=== PATIENT | male | born 1990 | race Caucasian/White ===

== ENCOUNTER 2018-05-27 14:59 | Inpatient (IN) ==
--- NOTE | 2018-05-27 15:21 | ED ---
HPI General Chief Complaint: Dental/Oral Stated Complaint: Abd/Tooth Pain Time Seen by Provider: 05/27/18 15:23 Source: patient Mode of arrival: ambulatory Limitations: no limitations History of Present Illness HPI narrative: Patient comes in complaining of 2 issues, patient is on the past 4 Crohn's disorder, he has about of exacerbation today she he rates the pain at approximately an 8 out of 10. It is associated with nausea and diarrhea. The patient also is experiencing severe pain 10 out of 10 of his broken right to on the right maxillary aspect molar tWO MD complaint: abdominal pain Onset (ago): hour(s) (4) Pain Consistency: intermittent Location: diffuse Severity: moderate Severity scale (1-10): 5 Quality: cramping Radiation: none Migration to: no migration Relieving factors: nothing Exacerbating factors: nothing Related Data Allergies Allergy/AdvReac Type Severity Reaction Status Date / Time iodine Allergy Intermediate Anaphylaxis Verified 05/27/18 15:25 Review of Systems Except as stated in HPI: all other systems reviewed are negative PMFSH History History Provided By: Patient Medical History Medical History Crohn disease (Acute) Surgical History Surgical History History of colon resection (Acute) History of colostomy reversal (Acute) Social History Social History Substance History: No History of Abuse Second Hand Smoke Exposure: No Smoking Status: Never smoker How Often Do You Have a Drink Containing Alcohol: Never Recent Travel in [facility] within the Last 8 Weeks: No Recent Out of Country Travel within the Last 8 Weeks: No Exam Narrative Exam Narrative: GENERAL: Well-nourished, well-developed patient in no apparent distress. SKIN: Warm and dry. HEAD: Atraumatic. Normocephalic. EYES: Pupils equal and round. No scleral icterus. No injection or drainage. ENT: No nasal bleeding or discharge. Mucous membranes pink and moist. Right mandibular molar is a large central area that is broken exposing nerve roots, patient given viscous lidocaine NECK: Trachea midline. No JVD. CARDIOVASCULAR: Regular rate and rhythm. no rubs or gallops RESPIRATORY: No accessory muscle use. Clear to auscultation. Breath sounds equal bilaterally. GASTROINTESTINAL: Abdomen soft, epigastric tenderness to palpation , nondistended. No rebound or guarding MUSCULOSKELETAL: Extremities without clubbing, cyanosis, or edema. No obvious deformities. NEUROLOGICAL: Awake and alert. No obvious cranial nerve deficits. Motor grossly within normal limits. Five out of 5 muscle strength in the arms and legs. Normal speech. PSYCHIATRIC: Appropriate mood and affect; insight and judgment normal. Course Initial Documented Vital Signs Temperature 98.5 F 05/27/18 15:06 Pulse Rate 125 H 05/27/18 15:06 Respiratory Rate 22 05/27/18 15:06 Blood Pressure 121/85 05/27/18 15:06 Pulse Oximetry 98 05/27/18 15:06 Last Documented Vital Signs Temperature 98.5 F 05/27/18 15:06 Pulse Rate 125 H 05/27/18 15:06 Respiratory Rate 22 05/27/18 15:06 Blood Pressure 121/85 05/27/18 15:06 Pulse Oximetry 100 05/27/18 16:35 Medical Decision Making MDM Narrative Medical decision making narrative: Patient with known history of Crohn's disease , will be evaluated with IV blood work as well as CT abdomen and pelvis to make sure that there are not any abscess or perforations which are common complications of Crohn's disorder. Lab Data Lab results reviewed: Yes I reviewed the patient's lab results. Result diagrams: 05/27/18 15:46 05/27/18 15:46 Lab Results 05/27/18 05/27/18 Range/Units 15:46 15:46 WBC 4.7 (4.0-11.0) th/mm3 RBC 4.26 L (4.50-5.90) mil/mm3 Hgb 12.8 L (13.0-17.0) gm/dL Hct 39.6 (39.0-51.0) % MCV 93.2 (80.0-100.0) fL MCH 30.2 (27.0-34.0) pg MCHC 32.4 (32.0-36.0) % RDW 14.7 (11.6-17.2) % Plt Count 340 (150-450) th/mm3 MPV 7.9 (7.0-11.0) fL Neut % (Auto) 48.5 (16.0-70.0) % Lymph % (Auto) 33.4 (9.0-44.0) % [place] % (Auto) 12.4 H (0.0-8.0) % Eos % (Auto) 4.4 H (0.0-4.0) % Baso % (Auto) 1.3 (0.0-2.0) % Neut # (Auto) 2.3 (1.8-7.7) th/mm3 Lymph # (Auto) 1.6 (1.0-4.8) th/mm3 [place] # (Auto) 0.6 (0.0-0.9) th/mm3 Eos # (Auto) 0.2 (0.0-0.4) th/mm3 Baso # (Auto) 0.1 (0.0-0.2) th/mm3 WBC Differential . Differential Comment Auto diff final Sodium 142 (136-145) meq/L Potassium 3.5 (3.5-5.1) meq/L Chloride 108 H (98-107) meq/L Carbon Dioxide 27.2 (21.0-32.0) meq/L Anion Gap 7 (5-15) meq/L BUN 10 (7-18) mg/dL Creatinine 1.04 (0.60-1.30) mg/dL Random Glucose 79 (74-106) mg/dL Calcium 9.1 (8.5-10.1) mg/dL Total Bilirubin 0.2 (0.2-1.0) mg/dL AST 37 (15-37) U/L ALT 57 (12-78) U/L Alkaline Phosphatase 85 (45-117) U/L Total Protein 7.7 (6.4-8.2) g/dL Albumin 3.9 (3.4-5.0) g/dL Lipase 2331 H (73-393) U/L Discharge Plan Discharge Disposition Patient Disposition: 30 Still Patient Discharge Condition Condition: Stable Discharge Details Diagnosis: Fracture of tooth, Acute pancreatitis Physicians Team ED Provider: Malik Engel ED Status: With Doctor
[2018-05-27] MEDS ORDERED: Sod Chloride 0.9% Inj 1,000 ML IV.SIG ONE (15:25)
[2018-05-27] MEDS ORDERED: Morphine Inj 4 MG/ML Vial IV.PUSH ONE ×2 (15:25→16:52)
[2018-05-27 16:02] LABS: Baso # (Auto) 0.1 th/mm3 (0.0-0.2); Baso % (Auto) 1.3 % (0.0-2.0); Eos # (Auto) 0.2 th/mm3 (0.0-0.4); Eos % (Auto) 4.4 % (0.0-4.0); Hematocrit 39.6 % (39.0-51.0); Hemoglobin 12.8 gm/dL (13.0-17.0); Lymph # (Auto) 1.6 th/mm3 (1.0-4.8); Lymph % (Auto) 33.4 % (9.0-44.0); Mean Corpuscular HGB Conc 32.4 % (32.0-36.0); Mean Corpuscular Hemoglobin 30.2 pg (27.0-34.0); Mean Corpuscular Volume 93.2 fL (80.0-100.0); Mean Platelet Volume 7.9 fL (7.0-11.0); Mono # (Auto) 0.6 th/mm3 (0.0-0.9); Mono % (Auto) 12.4 % (0.0-8.0); Neut # (Auto) 2.3 th/mm3 (1.8-7.7); Neut % (Auto) 48.5 % (16.0-70.0); Platelet Count 340 th/mm3 (150-450); Red Blood Count 4.26 mil/mm3 (4.50-5.90); Red Cell Distribution Width 14.7 % (11.6-17.2); White Blood Count 4.7 th/mm3 (4.0-11.0)
[2018-05-27 16:22] LABS: Alanine Aminotransferase 57 U/L (12-78); Albumin 3.9 g/dL (3.4-5.0); Anion Gap 7 meq/L (5-15); Aspartate Aminotransferase 37 U/L (15-37); Blood Urea Nitrogen 10 mg/dL (7-18); Calcium 9.1 mg/dL (8.5-10.1); Carbon Dioxide 27.2 meq/L (21.0-32.0); Chloride 108 meq/L (98-107); Glucose,Random 79 mg/dL (74-106); Potassium 3.5 meq/L (3.5-5.1); Sodium 142 meq/L (136-145)
[2018-05-27 16:25] LABS: Alkaline Phosphatase 85 U/L (45-117); Lipase 2331 U/L (73-393); Total Protein 7.7 g/dL (6.4-8.2)
[2018-05-27] MEDS ORDERED: Morphine Sulfate Inj 8 MG/ML Vial IV.PUSH PRN ×2 (18:00→18:07)
[2018-05-27] MEDS ORDERED: Sod Chloride 0.9% Inj 1,000 ML IV.CONT SCH (18:00)
--- NOTE | 2018-05-27 18:02 | CT ---
EXAM DATE: 05/27/2018 5:44 PM EDT AGE/SEX: 28 years / Male INDICATIONS: Abdomen pain. CLINICAL DATA: This is the patient's initial encounter. Patient reports that signs and symptoms have been present for 1 day and indicates a pain score of 6/10. MEDICAL/SURGICAL HISTORY: Crohn's disease. None. RADIATION DOSE: 6.34 CTDI (mGy) COMPARISON: No prior exams available for comparison. TECHNIQUE: Multiple contiguous axial images were obtained through the abdomen. Images were obtained using multiple row detector helical technique. Using automated exposure control and adjustment of the mA and/or kV according to patient size, radiation dose was kept as low as reasonably achievable to o btain optimal diagnostic quality images. DICOM format image data is available electronically for rev iew and comparison. FINDINGS: Lower Lungs: The visualized lower lungs are clear. Liver: The liver has a homogeneous density without space-occupying lesion. There is no dilation of th e biliary tree. There are calcifications along the right lateral liver margin. Spleen: Homogeneous density without enlargement. Pancreas: Unremarkable without mass or calcification. Kidneys: Normal in size and shape. No evidence of mass or hydronephrosis. Adrenal Glands: Unremarkable. Aorta: The aorta and proximal iliac vessels are grossly unremarkable without aneurysmal dilation. Bowel/Mesentery: Limited evaluation secondary to lack of intravenous and oral contrast. There are pos tsurgical changes with anastomotic zeenat in the pelvis. There is no evidence of free air or fluid. The bowel gas pattern is mildly nonspecific with multiple loops of nondilated air-containing small billy wel. The cecum and sigmoid colon have a normal configuration. Abdominal Wall: Intact. Retroperitoneum: No evidence of adenopathy in the retrocrural, para-aortic, or deep pelvic regions. Bladder: Contours are smooth. Reproductive Organs: No abnormal masses or calcifications seen. Inguinal: The inguinal region is unremarkable without evidence of adenopathy. Bony Structures: Unremarkable. CONCLUSION: 1. Nonspecific bowel gas pattern. Evaluation is limited secondary to lack of intravenous and oral co ntrast. There are several loops of nondilated air-containing small bowel. This may represent a mild i leus. There is no definite free air. Postsurgical changes are noted in the pelvis with anastomotic st aples. 2. Benign-appearing calcifications along lateral aspect of the right lobe of the liver. These may re side in the pleura. Electronically signed by: Juvenal Reina MD 05/27/2018 6:00 PM EDT
[2018-05-27] MEDS ORDERED: HYDROmorphone PF Inj 1 MG/ML Ampul IV.PUSH ONE (18:05)
[2018-05-27] MEDS ORDERED: HYDROmorphone PF Inj 2 MG/ML Vial IV.PUSH ONE (18:30)
--- NOTE | 2018-05-27 18:38 | P.HP ---
History of Present Illness Service: [facility] Chief Complaint: Abdominal Pain, Right tooth fracture History of Present Illness: Patient is a 28 year old male with PMHX Crohn's disease who came in to the hospital for severe abdominal pain. Patient states that he does not really have a flare up of Crohn's , noting it is just once every 2 years or so however states he was he was also hospitalized about 3 weeks ago for Crohn's flare up. He also complained that he broke his tooth while eating and stopped his fork in it on the right upper molar portion. But states that he has severe abdominal pain right now and is asking for pain medication. States that he got Dilaudid before and other hospital and that helped him to calm down his severe pain. Patient denies any alcohol use, drug use except for marijuana use. He denies any other medical history. States he had 2 colon resection with colostomy placement and reversal. States abdominal pain is diffuse, rated 10/10, radiating all the way to his back, aggravated by movement, does not know what to relieve it. States he is very anxious because he never had this kind of pain. Positive nausea, no vomiting, positive diarrhea, liquid, no blood. Otherwise, denies SOB/ dyspnea. Denies chest pain, palpitations, headaches, dizziness. Denies fevers, chills. Denies dysuria. Tachycardia 125, 121/85, Lipase 2331. CT scan of the abdomen and pelvis 1. Nonspecific bowel gas pattern. Evaluation is limited secondary to lack of intravenous and oral contrast. There are several loops of nondilated air-containing small bowel. This may represent a mild ileus. There is no definite free air. Postsurgical changes are noted in the pelvis with anastomotic zeenat. 2. Benign-appearing calcifications along lateral aspect of the right lobe of the liver. These may reside in the pleura. Inpatient Certification: I certify that the inpatient services were ordered in accordance with Medicare regulations governing the order. This includes certification that hospital inpatient services are reasonable and necessary and in the case of services not specified as inpatient-only under 42 CFR 419.22(n), that they are appropriately provided as inpatient services in accordance to with the 2-midnight benchmark under 43 CFR 412.3(e) Estimated Total Length of Stay (Days): 2 Plans for Post Hospital Care: Home Review of Systems All other systems reviewed negative except as stated in HPI PMFSH - History History Provided By: Patient - Medical History Medical History: Medical History (Last Updated 05/27/18 @ 16:17 by Nelida Bond) Crohn disease - Surgical History Surgical History: Surgical History (Last Updated 05/27/18 @ 16:19 by Nelida Bond) History of colon resection History of colostomy reversal - Family History Family History: Family History (Last Updated 05/27/18 @ 18:26 by BIANKA Samuels) Mother Crohn disease - Tobacco History Second Hand Smoke Exposure: No Smoking Status: Never smoker - Alcohol History How Often Do You Have a Drink Containing Alcohol: Never - Substance Use History Substance History: No History of Abuse - Substance Use Type Marijuana Type: Marijuana, for appetite stimulation Status: Active (Increase appetite) Frequency: occassional - Travel History Recent Travel in the [place] Within the Last 8 Weeks: No Recent Travel Out of the Country Within the Last 8 Weeks: No - Immunization History Tetanus Immunization: Unsure Hx Influenza Vaccine This Season: Yes Medications and Allergies Active Medications: Active Medications Sodium Chloride (Ns Inj) 1,000 mls @ 125 mls/hr IV.CONT .Q8H DANIKA Lidocaine HCl (Xylocaine 2% Viscous) 15 ml SWISH-SPIT Q4H PRN PRN Reason: DENTAL PAIN Last Admin: 05/27/18 16:37 Dose: 15 ml Morphine Sulfate (Morphine Inj) 2 mg IV.PUSH Q3H PRN PRN Reason: pain 1-5 Morphine Sulfate (Morphine Inj) 5 mg IV.PUSH Q4H PRN PRN Reason: PAIN 6-10;IF UNABLE TO TAKE PO Sodium Chloride (Ns Flush) 2 ml IV.FLUSH PRN PRN PRN Reason: FLUSH AFTER USING IV ACCESS Sodium Chloride (Ns Flush) 2 ml IV.FLUSH BID DANIKA Sodium Chloride (Ns Flush) 2 ml IV.FLUSH PRN PRN PRN Reason: FLUSH AFTER USING IV ACCESS Allergies Allergy/AdvReac Type Severity Reaction Status Date / Time iodine Allergy Intermediate Anaphylaxis Verified 05/27/18 15:25 Exam Vital signs: Vital Signs 05/27/18 15:06 05/27/18 16:35 05/27/18 17:15 Temperature 98.5 F Pulse Rate 125 H Respiratory Rate 22 17 Blood Pressure 121/85 Pulse Oximetry 98 100 05/27/18 17:51 Temperature Pulse Rate Respiratory Rate 16 Blood Pressure Pulse Oximetry Intake & Output 05/26/18 05/27/18 05/27/18 18:59 06:59 18:59 Weight 68.039 kg Narrative: GENERAL: This is a thin appearing, well-developed patient, appears very anxious. SKIN: Warm and dry HEENT: Normocephalic. Pupils equal round and reactive. Nose without bleeding. Airway patent. Right upper molar tooth fx, no erythema or edema.Tooth has intact attachment. NECK: Trachea midline. No JVD. Supple. CARDIOVASCULAR: Regular rate and rhythm without murmurs, gallops, or rubs. RESPIRATORY: Clear to auscultation. Breath sounds equal bilaterally. No wheezes , rales, or rhonchi. GASTROINTESTINAL: Abdomen soft, nondistended. Bowel Sounds normoactive x4. Tenderness to palpate left quadrant, mid epigastric MUSCULOSKELETAL: Extremities without clubbing, cyanosis, or edema. NEUROLOGICAL: Awake and alert. Oriented to time, place, person. No focal neuro deficit. Moves all extremities. Normal speech. Results - Labs CBC & Chem 7: 05/27/18 15:46 05/27/18 15:46 Labs: Laboratory Results - last 24 hr 05/27/18 05/27/18 15:46 15:46 WBC 4.7 RBC 4.26 L Hgb 12.8 L Hct 39.6 MCV 93.2 MCH 30.2 MCHC 32.4 RDW 14.7 Plt Count 340 MPV 7.9 Neut % (Auto) 48.5 Lymph % (Auto) 33.4 [place] % (Auto) 12.4 H Eos % (Auto) 4.4 H Baso % (Auto) 1.3 Neut # (Auto) 2.3 Lymph # (Auto) 1.6 [place] # (Auto) 0.6 Eos # (Auto) 0.2 Baso # (Auto) 0.1 WBC Differential . Differential Comment Auto diff final Sodium 142 Potassium 3.5 Chloride 108 H Carbon Dioxide 27.2 Anion Gap 7 BUN 10 Creatinine 1.04 Random Glucose 79 Calcium 9.1 Total Bilirubin 0.2 AST 37 ALT 57 Alkaline Phosphatase 85 Total Protein 7.7 Albumin 3.9 Lipase 2331 H - Imaging Impressions Abdomen/Pelvis CT 05/27/18 15:25 CONCLUSION: 1. Nonspecific bowel gas pattern. Evaluation is limited secondary to lack of intravenous and oral contrast. There are several loops of nondilated air- containing small bowel. This may represent a mild ileus. There is no definite free air. Postsurgical changes are noted in the pelvis with anastomotic zeenat. 2. Benign-appearing calcifications along lateral aspect of the right lobe of the liver. These may reside in the pleura. Caprini VTE Risk Assessment Caprini VTE Risk Assessment: No/Low Risk (score <= 1) Caprini Risk Assessment Model: Point Value = 1 Point Value = 2 Point Value = 3 Point Value = 5 Age 41-60 Minor surgery BMI > 25 kg/m2 Swollen legs Varicose veins or History of unexplained or recurrent spontaneous Oral contraceptives or hormone replacement Sepsis (< 1 month) Serious lung disease, including pneumonia (< 1 month) Abnormal pulmonary function Acute myocardial infarction Congestive heart failure (< 1 month) History of inflammatory bowel disease Medical patient at bed rest Age 61-74 Arthroscopic surgery Major open surgery (> 45 min) Laparoscopic surgery (> 45 min) Malignancy Confined to bed (> 72 hours) Immobilizing plaster cast Central venous access Age >= 75 History of VTE Family history of VTE Factor V Leiden Prothrombin [id number] Lupus anticoagulant Anticardiolipin antibodies Elevated serum homocysteine Heparin-induced thrombocytopenia Other congenital or acquired thrombophilia Stroke (< 1 month) Elective arthroplasty Hip, pelvis, or leg fracture Acute spinal cord injury (< 1 month) Prophylaxis Regimen: Total Risk Factor Score Risk Level Prophylaxis Regimen 0-1 Low Early ambulation 2 Moderate Order ONE of the following: *Sequential Compression Device (SCD) *Heparin 5000 units SQ BID 3-4 Higher Order ONE of the following medications: *Heparin 5000 units SQ TID *Enoxaparin/Lovenox 40 mg SQ daily (WT < 150 kg, CrCl > 30 mL/min) *Enoxaparin/Lovenox 30 mg SQ daily (WT < 150 kg, CrCl > 10-29 mL/min) *Enoxaparin/Lovenox 30 mg SQ BID (WT < 150 kg, CrCl > 30 mL/min) AND/OR *Sequential Compression Device (SCD) 5 or more Highest Order ONE of the following medications: *Heparin 5000 units SQ TID (Preferred with Epidurals) *Enoxaparin/Lovenox 40 mg SQ daily (WT < 150 kg, CrCl > 30 mL/min) *Enoxaparin/Lovenox 30 mg SQ daily (WT < 150 kg, CrCl > 10-29 mL/min) *Enoxaparin/Lovenox 30 mg SQ BID (WT < 150 kg, CrCl > 30 mL/min) AND *Sequential Compression Device (SCD) Assessment and Plan - Plan Patient is a 28 year old male with PMHX Crohn's disease who came in to the hospital for severe abdominal pain. Acute Pancreatitis Underlying Crohn's disease -Lipase 2331 -CT of the abdomen and pelvis is no contrast due to allergy. 1. Nonspecific bowel gas pattern. Evaluation is limited secondary to lack of intravenous and oral contrast. There are several loops of nondilated air- containing small bowel. This may represent a mild ileus. There is no definite free air. Postsurgical changes are noted in the pelvis with anastomotic zeenat. 2. Benign-appearing calcifications along lateral aspect of the right lobe of the liver. These may reside in the pleura. -IV fluids, NPO for now -Follow labs -X1 dose dialudid for now, x1 dose ativan -Morphine IV for pain Fracture tooth -Intact implantation -Follow up outpatient DVT Prop SCDs
[2018-05-27] MEDS ORDERED: Morphine Inj 4 MG/ML Vial IV.PUSH PRN ×2 (21:31→21:32)
[2018-05-28] MEDS: HYDROmorphone PF Inj 2 MG/ML Vial IV.PUSH PRN ×3 (00:50→21:04)
[2018-05-28 07:05] LABS: Alanine Aminotransferase 39 U/L (12-78); Albumin 2.8 g/dL (3.4-5.0); Alkaline Phosphatase 63 U/L (45-117); Anion Gap 4 meq/L (5-15); Aspartate Aminotransferase 21 U/L (15-37); Blood Urea Nitrogen 7 mg/dL (7-18); Calcium 8.3 mg/dL (8.5-10.1); Carbon Dioxide 27.8 meq/L (21.0-32.0); Chloride 109 meq/L (98-107); Glomerular Filtration Rate Greater Than 89 mL/min (>89); Glucose,Random 80 mg/dL (74-106); Lipase 202 U/L (73-393); Potassium 3.9 meq/L (3.5-5.1); Sodium 141 meq/L (136-145); Total Protein 5.8 g/dL (6.4-8.2)
[2018-05-28 07:22] LABS: Baso % (Auto) 0.5 % (0.0-2.0); Eos # (Auto) 0.3 th/mm3 (0.0-0.4); Hemoglobin 12.1 gm/dL (13.0-17.0); Lymph # (Auto) 1.5 th/mm3 (1.0-4.8); Lymph % (Auto) 36.5 % (9.0-44.0); Mean Corpuscular HGB Conc 32.8 % (32.0-36.0); Mean Corpuscular Hemoglobin 30.3 pg (27.0-34.0); Mean Corpuscular Volume 92.3 fL (80.0-100.0); Mono # (Auto) 0.5 th/mm3 (0.0-0.9); Neut # (Auto) 1.9 th/mm3 (1.8-7.7); Platelet Count 286 th/mm3 (150-450); Red Cell Distribution Width 14.2 % (11.6-17.2); White Blood Count 4.1 th/mm3 (4.0-11.0)
--- NOTE | 2018-05-28 13:20 | P.PNIM ---
Subjective Interval history: Patient reports persistent abdominal pain and watery diarrhea. On arrival to the room, he seemed comfortable using his laptop but on my evaluation he reports significant abdominal pain. Physical Exam Vital signs: Vital Signs 05/27/18 15:06 05/27/18 16:35 05/27/18 17:15 Temperature 98.5 F Pulse Rate 125 H Respiratory Rate 22 17 Blood Pressure 121/85 Pulse Oximetry 98 100 05/27/18 17:51 05/27/18 19:18 05/27/18 20:00 Temperature 97.4 F L Pulse Rate 68 63 Respiratory Rate 16 15 18 Blood Pressure 112/68 117/65 Pulse Oximetry 97 99 05/28/18 00:00 05/28/18 04:00 05/28/18 08:00 Temperature 97.7 F 97.6 F 97.4 F L Pulse Rate 64 62 Respiratory Rate 18 18 19 Blood Pressure 115/74 107/68 109/61 Pulse Oximetry 100 100 95 Intake & Output 05/27/18 05/28/18 05/28/18 18:59 06:59 18:59 Intake Total 1000 / 1000 0 / 0 Output Total 200 / 200 Balance 1000 / 1000 -200 / -200 Weight 68.039 kg 63 kg Intake: IV 1000 / 1000 LR 1000 mL Inj 1,000 ML @ 125 1000 / 1000 mls/hr IV.CONT .Q8H [facility] Rx#: [id number] Oral 0 / 0 Output: Urine 200 / 200 Other: Date of Last Bowel Movement 05/27/18 05/28/18 Weight On Admission 63 kg Narrative: GENERAL: This is a well-nourished, well-developed patient, in no apparent distress. CARDIOVASCULAR: Normal rate and regular rhythm without murmurs, gallops, or rubs. RESPIRATORY: Good respiratory efforts. Breath sounds equal and clear to auscultation bilaterally. GASTROINTESTINAL: Abdomen soft, non-distended. Patient reports tenderness to palpation. No rebound tenderness. MUSCULOSKELETAL: Extremities without cyanosis, or edema. NEURO: Alert & Oriented x4 to person, place, time, situation. Moves all ext x4 PSYCH: Appropriate mood and affect. Results - Labs CBC & Chem 7: 05/28/18 06:22 05/28/18 06:22 Laboratory Results - last 24 hr 05/27/18 05/27/18 05/28/18 15:46 15:46 06:22 WBC 4.7 4.1 RBC 4.26 L 4.00 L Hgb 12.8 L 12.1 L Hct 39.6 37.0 L MCV 93.2 92.3 MCH 30.2 30.3 MCHC 32.4 32.8 RDW 14.7 14.2 Plt Count 340 286 MPV 7.9 8.0 Neut % (Auto) 48.5 46.0 Lymph % (Auto) 33.4 36.5 [place] % (Auto) 12.4 H 11.0 H Eos % (Auto) 4.4 H 6.0 H Baso % (Auto) 1.3 0.5 Neut # (Auto) 2.3 1.9 Lymph # (Auto) 1.6 1.5 [place] # (Auto) 0.6 0.5 Eos # (Auto) 0.2 0.3 Baso # (Auto) 0.1 0.0 WBC Differential . . Differential Comment Auto diff final Auto diff final Sodium 142 Potassium 3.5 Chloride 108 H Carbon Dioxide 27.2 Anion Gap 7 BUN 10 Creatinine 1.04 Estimated GFR Random Glucose 79 Calcium 9.1 Total Bilirubin 0.2 Direct Bilirubin Indirect Bilirubin AST 37 ALT 57 Alkaline Phosphatase 85 Total Protein 7.7 Albumin 3.9 Lipase 2331 H 05/28/18 06:22 WBC RBC Hgb Hct MCV MCH MCHC RDW Plt Count MPV Neut % (Auto) Lymph % (Auto) [place] % (Auto) Eos % (Auto) Baso % (Auto) Neut # (Auto) Lymph # (Auto) [place] # (Auto) Eos # (Auto) Baso # (Auto) WBC Differential Differential Comment Sodium 141 Potassium 3.9 Chloride 109 H Carbon Dioxide 27.8 Anion Gap 4 L BUN 7 Creatinine 0.79 Estimated GFR Greater than 89 Random Glucose 80 Calcium 8.3 L D Total Bilirubin 0.3 Direct Bilirubin 0.1 Indirect Bilirubin 0.2 AST 21 ALT 39 Alkaline Phosphatase 63 Total Protein 5.8 L D Albumin 2.8 L D Lipase 202 - Imaging Impressions Abdomen/Pelvis CT 05/27/18 15:25 CONCLUSION: 1. Nonspecific bowel gas pattern. Evaluation is limited secondary to lack of intravenous and oral contrast. There are several loops of nondilated air- containing small bowel. This may represent a mild ileus. There is no definite free air. Postsurgical changes are noted in the pelvis with anastomotic zeenat. 2. Benign-appearing calcifications along lateral aspect of the right lobe of the liver. These may reside in the pleura. Assessment and Plan - Plan Patient is a 28 year old male with PMHX Crohn's disease who came in to the hospital for severe abdominal pain. Acute Pancreatitis Underlying Crohn's disease -Lipase 2331 on presentation, trended down and normalized. -CT of the abdomen and pelvis is no contrast due to allergy. 1. Nonspecific bowel gas pattern. Evaluation is limited secondary to lack of intravenous and oral contrast. There are several loops of nondilated air- containing small bowel. This may represent a mild ileus. There is no definite free air. Postsurgical changes are noted in the pelvis with anastomotic zeenat. 2. Benign-appearing calcifications along lateral aspect of the right lobe of the liver. These may reside in the pleura. -Advanced to low-fat diet -No objective evidence that he requires IV pain medication. Start Percocet. Discontinue Dilaudid -Consult GI given history of Crohn's and persistent abdominal pain. Fracture tooth -Intact implantation -Follow up outpatient DVT Prop SCDs. Patient is ambulatory.
[2018-05-28] MEDS: oxyCODONE/Acetaminophen 10/325 Tablet PO PRN ×2 (13:36→19:27)
--- NOTE | 2018-05-28 13:40 | P.CONGI ---
History of Present Illness Consult date: 05/28/18 Consult reason: Abdominal pain Chief complaint: Abd/Tooth Pain History of Present Illness: This is a 28 yo M with GI history significant for Crohns disease, previously had 2 bowel resections, at one point had a colostomy which has since been reversed. Pt presented to the ER yesterday with complaints of RUQ abdominal pain that began suddenly yesterday afternoon, denies eating or doing anything prior to the pain starting. Pain is constant, described as sharp and stabbing. Also complaining of nausea and vomiting that began at the same time, two episodes of emesis, denies hematemesis and coffee ground emesis. Pt found to have elevated lipase. Denies history of pancreatitis. Of note, states he thinks his mother of pancreatic cancer and states she did not drink alcohol. Pt complaining of diarrhea, states diarrhea is chronic but has been increasing in frequency. Denies hematochezia. Pt on Pentasa and folic acid for Crohns, states when he has flares he goes to an urgent care for Prednisone, currently with no GI doctor. Last colonoscopy 1 years ago and states active Crohns flare at that time. Last EGD 2 years ago and states inflammation consistent with acid reflux. Denies ETOH, smoking, and illicit drug use although according to admission note pt did admit to marijuana use. <Neeta Guerra - Last Filed: 05/28/18 13:27> Review of Systems Gastrointestinal: Reports abdominal pain, Reports loose stools, Reports nausea, Reports vomiting, Denies black, tarry stools, Denies bright, red blood in stools , Denies coffee ground vomit, Denies vomiting blood <Neeta Guerra - Last Filed: 05/28/18 13:27> [facility] - History History Provided By: Patient, Significant Other - Medical History Medical History: Medical History (Last Updated 05/27/18 @ 16:17 by Nelida Bond) Crohn disease - Surgical History Surgical History: Surgical History (Last Updated 05/27/18 @ 16:19 by Nelida Bond) History of colon resection History of colostomy reversal - Family History Family History: Family History (Last Updated 05/27/18 @ 18:26 by BIANKA Samuels) Mother Crohn disease - Tobacco History Second Hand Smoke Exposure: No Tobacco Use In Past 30 Days: No Smoking Status: Former smoker - Alcohol History How Often Do You Have a Drink Containing Alcohol: Never - Substance Use History Substance History: Active Abuse - Substance Use Type Marijuana Type: Marijuana, for appetite stimulation Status: Active Route Used: Inhalation Frequency: occassional Last Used: 05/27/18 - Travel History Recent Travel in the [place] Within the Last 8 Weeks: No Recent Travel Out of the Country Within the Last 8 Weeks: No - Immunization History Tetanus Immunization: <5 Years Hx Influenza Vaccine This Season: No <Neeta Guerra - Last Filed: 05/28/18 13:27> - Medical History Medical History: Medical History (Last Updated 05/27/18 @ 16:17 by Nelida Bond) Crohn disease - Surgical History Surgical History: Surgical History (Last Updated 05/27/18 @ 16:19 by Nelida Bond) History of colon resection History of colostomy reversal - Family History Family History: Family History (Last Updated 05/27/18 @ 18:26 by BIANKA Samuels) Mother Crohn disease <Cornell Hays - Last Filed: 05/28/18 15:54> Medications and Allergies Active Medications: Active Medications Diphenhydramine HCl (Benadryl Inj) 25 mg IV.PUSH Q4H PRN PRN Reason: ITCHING Last Admin: 05/28/18 02:39 Dose: 25 mg Hydromorphone HCl (Dilaudid Pf Inj) 0.5 mg IV.PUSH Q4H PRN PRN Reason: BREAKTHROUGH PAIN Lactated Ringer's (Lr 1000 Ml Inj) 1,000 mls @ 125 mls/hr IV.CONT .Q8H [facility] Last Admin: 05/28/18 12:38 Dose: Not Given Lidocaine HCl (Xylocaine 2% Viscous) 15 ml SWISH-SPIT Q4H PRN PRN Reason: DENTAL PAIN Last Admin: 05/27/18 16:37 Dose: 15 ml Ondansetron HCl (Zofran Odt) 4 mg PO Q6H PRN PRN Reason: Nausea, vomiting Oxycodone/Acetaminophen (Percocet 10/325 Mg) 1 tab PO Q6H PRN PRN Reason: PAIN SCALE 6 TO 10 Sodium Chloride (Ns Flush) 2 ml IV.FLUSH BID [facility] Last Admin: 05/28/18 12:37 Dose: Not Given Sodium Chloride (Ns Flush) 2 ml IV.FLUSH PRN PRN PRN Reason: FLUSH AFTER USING IV ACCESS <Neeta Guerra - Last Filed: 05/28/18 13:27> Active Medications: Active Medications Diphenhydramine HCl (Benadryl Inj) 25 mg IV.PUSH Q4H PRN PRN Reason: ITCHING Last Admin: 05/28/18 02:39 Dose: 25 mg Hydromorphone HCl (Dilaudid Pf Inj) 0.5 mg IV.PUSH Q4H PRN PRN Reason: BREAKTHROUGH PAIN Lactated Ringer's (Lr 1000 Ml Inj) 1,000 mls @ 125 mls/hr IV.CONT .Q8H [facility] Last Admin: 05/28/18 12:38 Dose: Not Given Lidocaine HCl (Xylocaine 2% Viscous) 15 ml SWISH-SPIT Q4H PRN PRN Reason: DENTAL PAIN Last Admin: 05/27/18 16:37 Dose: 15 ml Ondansetron HCl (Zofran Odt) 4 mg PO Q6H PRN PRN Reason: Nausea, vomiting Oxycodone/Acetaminophen (Percocet 10/325 Mg) 1 tab PO Q6H PRN PRN Reason: PAIN SCALE 6 TO 10 Last Admin: 05/28/18 13:36 Dose: 1 tab Sodium Chloride (Ns Flush) 2 ml IV.FLUSH BID [facility] Last Admin: 05/28/18 12:37 Dose: Not Given Sodium Chloride (Ns Flush) 2 ml IV.FLUSH PRN PRN PRN Reason: FLUSH AFTER USING IV ACCESS <Cornell Hays - Last Filed: 05/28/18 15:54> Allergies Allergy/AdvReac Type Severity Reaction Status Date / Time iodine Allergy Intermediate Anaphylaxis Verified 05/27/18 15:25 Home Medications Medication Instructions Recorded Confirmed Type No Known Home Medications 05/27/18 05/27/18 History Exam Vital signs: Vital Signs 05/27/18 15:06 05/27/18 16:35 05/27/18 17:15 Temperature 98.5 F Pulse Rate 125 H Respiratory Rate 22 17 Blood Pressure 121/85 Pulse Oximetry 98 100 05/27/18 17:51 05/27/18 19:18 05/27/18 20:00 Temperature 97.4 F L Pulse Rate 68 63 Respiratory Rate 16 15 18 Blood Pressure 112/68 117/65 Pulse Oximetry 97 99 05/28/18 00:00 05/28/18 04:00 05/28/18 08:00 Temperature 97.7 F 97.6 F 97.4 F L Pulse Rate 64 62 Respiratory Rate 18 18 19 Blood Pressure 115/74 107/68 109/61 Pulse Oximetry 100 100 95 Intake & Output 05/27/18 05/28/18 05/28/18 18:59 06:59 18:59 Intake Total 1000 / 1000 0 / 0 Output Total 200 / 200 Balance 1000 / 1000 -200 / -200 Weight 68.039 kg 63 kg Intake: IV 1000 / 1000 LR 1000 mL Inj 1,000 ML @ 125 1000 / 1000 mls/hr IV.CONT .Q8H [facility] Rx#: [id number] Oral 0 / 0 Output: Urine 200 / 200 Other: Date of Last Bowel Movement 05/27/18 05/28/18 Weight On Admission 63 kg - Constitutional no acute distress - Routine HEENT Exam Head: Present: normocephalic, atraumatic - Routine Respiratory Exam Absent: accessory muscle use - Routine Cardiovascular Exam Present: RRR - Routine Abdominal Exam Present: soft, normoactive bowel sounds, tenderness (diffusely tender to palpation). Absent: distended - Routine Skin Exam Present: dry, warm - Routine Neurological Exam Present: alert, oriented X3 <Neeta Guerra - Last Filed: 05/28/18 13:27> Vital signs: Vital Signs 05/27/18 16:35 05/27/18 17:15 05/27/18 17:51 Temperature Pulse Rate Respiratory Rate 17 16 Blood Pressure Pulse Oximetry 100 05/27/18 19:18 05/27/18 20:00 05/28/18 00:00 Temperature 97.4 F L 97.7 F Pulse Rate 68 63 Respiratory Rate 15 18 18 Blood Pressure 112/68 117/65 115/74 Pulse Oximetry 97 99 100 05/28/18 04:00 05/28/18 08:00 05/28/18 12:00 Temperature 97.6 F 97.4 F L 97.2 F L Pulse Rate 64 62 97 H Respiratory Rate 18 19 21 Blood Pressure 107/68 109/61 160/73 H Pulse Oximetry 100 95 95 Intake & Output 05/27/18 05/28/18 05/28/18 18:59 06:59 18:59 Intake Total 1000 / 1000 0 / 0 Output Total 200 / 200 Balance 1000 / 1000 -200 / -200 Weight 68.039 kg 63 kg Intake: IV 1000 / 1000 LR 1000 mL Inj 1,000 ML @ 125 1000 / 1000 mls/hr IV.CONT .Q8H [facility] Rx#: [id number] Oral 0 / 0 Output: Urine 200 / 200 Other: Date of Last Bowel Movement 05/27/18 05/28/18 Weight On Admission 63 kg <Cornell Hays - Last Filed: 05/28/18 15:54> Results - Labs CBC & Chem 7: 05/28/18 06:22 05/28/18 06:22 Labs: Laboratory Results - last 24 hr 05/27/18 05/27/18 05/28/18 15:46 15:46 06:22 WBC 4.7 4.1 RBC 4.26 L 4.00 L Hgb 12.8 L 12.1 L Hct 39.6 37.0 L MCV 93.2 92.3 MCH 30.2 30.3 MCHC 32.4 32.8 RDW 14.7 14.2 Plt Count 340 286 MPV 7.9 8.0 Neut % (Auto) 48.5 46.0 Lymph % (Auto) 33.4 36.5 [place] % (Auto) 12.4 H 11.0 H Eos % (Auto) 4.4 H 6.0 H Baso % (Auto) 1.3 0.5 Neut # (Auto) 2.3 1.9 Lymph # (Auto) 1.6 1.5 Coryell # (Auto) 0.6 0.5 Eos # (Auto) 0.2 0.3 Baso # (Auto) 0.1 0.0 WBC Differential . . Differential Comment Auto diff final Auto diff final Sodium 142 Potassium 3.5 Chloride 108 H Carbon Dioxide 27.2 Anion Gap 7 BUN 10 Creatinine 1.04 Estimated GFR Random Glucose 79 Calcium 9.1 Total Bilirubin 0.2 Direct Bilirubin Indirect Bilirubin AST 37 ALT 57 Alkaline Phosphatase 85 Total Protein 7.7 Albumin 3.9 Lipase 2331 H 05/28/18 06:22 WBC RBC Hgb Hct MCV MCH MCHC RDW Plt Count MPV Neut % (Auto) Lymph % (Auto) [place] % (Auto) Eos % (Auto) Baso % (Auto) Neut # (Auto) Lymph # (Auto) [place] # (Auto) Eos # (Auto) Baso # (Auto) WBC Differential Differential Comment Sodium 141 Potassium 3.9 Chloride 109 H Carbon Dioxide 27.8 Anion Gap 4 L BUN 7 Creatinine 0.79 Estimated GFR Greater than 89 Random Glucose 80 Calcium 8.3 L D Total Bilirubin 0.3 Direct Bilirubin 0.1 Indirect Bilirubin 0.2 AST 21 ALT 39 Alkaline Phosphatase 63 Total Protein 5.8 L D Albumin 2.8 L D Lipase 202 - Imaging Impressions Abdomen/Pelvis CT 05/27/18 15:25 CONCLUSION: 1. Nonspecific bowel gas pattern. Evaluation is limited secondary to lack of intravenous and oral contrast. There are several loops of nondilated air- containing small bowel. This may represent a mild ileus. There is no definite free air. Postsurgical changes are noted in the pelvis with anastomotic zeenat. 2. Benign-appearing calcifications along lateral aspect of the right lobe of the liver. These may reside in the pleura. <Neeta Guerra - Last Filed: 05/28/18 13:27> - Labs CBC & Chem 7: 05/28/18 06:22 05/28/18 06:22 Labs: Laboratory Results - last 24 hr 05/27/18 05/27/18 05/28/18 15:46 15:46 06:22 WBC 4.7 4.1 RBC 4.26 L 4.00 L Hgb 12.8 L 12.1 L Hct 39.6 37.0 L MCV 93.2 92.3 MCH 30.2 30.3 MCHC 32.4 32.8 RDW 14.7 14.2 Plt Count 340 286 MPV 7.9 8.0 Neut % (Auto) 48.5 46.0 Lymph % (Auto) 33.4 36.5 Coryell % (Auto) 12.4 H 11.0 H Eos % (Auto) 4.4 H 6.0 H Baso % (Auto) 1.3 0.5 Neut # (Auto) 2.3 1.9 Lymph # (Auto) 1.6 1.5 Coryell # (Auto) 0.6 0.5 Eos # (Auto) 0.2 0.3 Baso # (Auto) 0.1 0.0 WBC Differential . . Differential Comment Auto diff final Auto diff final Sodium 142 Potassium 3.5 Chloride 108 H Carbon Dioxide 27.2 Anion Gap 7 BUN 10 Creatinine 1.04 Estimated GFR Random Glucose 79 Calcium 9.1 Total Bilirubin 0.2 Direct Bilirubin Indirect Bilirubin AST 37 ALT 57 Alkaline Phosphatase 85 Total Protein 7.7 Albumin 3.9 Lipase 2331 H 05/28/18 06:22 WBC RBC Hgb Hct MCV MCH MCHC RDW Plt Count MPV Neut % (Auto) Lymph % (Auto) Coryell % (Auto) Eos % (Auto) Baso % (Auto) Neut # (Auto) Lymph # (Auto) Coryell # (Auto) Eos # (Auto) Baso # (Auto) WBC Differential Differential Comment Sodium 141 Potassium 3.9 Chloride 109 H Carbon Dioxide 27.8 Anion Gap 4 L BUN 7 Creatinine 0.79 Estimated GFR Greater than 89 Random Glucose 80 Calcium 8.3 L D Total Bilirubin 0.3 Direct Bilirubin 0.1 Indirect Bilirubin 0.2 AST 21 ALT 39 Alkaline Phosphatase 63 Total Protein 5.8 L D Albumin 2.8 L D Lipase 202 - Imaging Impressions Abdomen/Pelvis CT 05/27/18 15:25 CONCLUSION: 1. Nonspecific bowel gas pattern. Evaluation is limited secondary to lack of intravenous and oral contrast. There are several loops of nondilated air- containing small bowel. This may represent a mild ileus. There is no definite free air. Postsurgical changes are noted in the pelvis with anastomotic zeenat. 2. Benign-appearing calcifications along lateral aspect of the right lobe of the liver. These may reside in the pleura. <Cornell Hays - Last Filed: 05/28/18 15:54> Assessment and Plan - Plan Assessment: - Pancreatitis of unclear etiology- lipase 2331 on admission Complaining of RUQ abdominal pain that came on suddenly yesterday afternoon, denies eating or doing anything prior to start of pain. Associated nausea and vomiting x 2, denies hematemesis and coffee ground emesis. Denies history of pancreatitis. Denies ETOH, new OTC or prescription medications. Of note, thinks his mother of pancreatic cancer and states she did not drink alcohol - Diarrhea- States chronic diarrhea secondary to Crohns but has been increasing in frequency over the past couple days, denies hematochezia History of Crohns disease S/P bowel resection x 2, at one point had colostomy which has since been reversed On Pentasa, Folic acid, calcium and iron supplements. States when he has a flare he goes to an urgent care for Prednisone, last flare a few months ago. Currently does not follow up with GI since moving from [place]. Last colonoscopy 1 year ago and states active Crohns flare at this time. Plan: Advance to liquid diet MRCP CA 19-9 SRINIVASA and IgG 4 Lipid panel Stool studies If negative, start on steroids Likely will not tolerate prep for colonoscopy at this time, will follow, inpatient vs outpatient Further recommendations to follow based on clinical course and results of above Pt has been seen and examined by myself and Dr. Hays and this note is written on his behalf <Neeta Guerra - Last Filed: 05/28/18 13:27> - Attending Attestation Patient seen and examined Agree with above Continue with current supportive care Monitor labs We will probably proceed with an EGD and a colonoscopy in a couple of days prior to discharge <Cornell Hays - Last Filed: 05/28/18 15:54>
[2018-05-28 16:27] LABS: Amphetamine Screen,Urine Neg (Neg); Barbiturate Screen,Urine Pos (Neg); Cannabinoid Screen,Urine Pos (Neg); Cocaine Screen,Urine Neg (Neg)
[2018-05-28 16:45] LABS: Opiate Screen,Urine Neg (Neg)
[2018-05-28 17:56] LABS: Chol/HDL Ratio 2.04 Ratio; HDL Cholesterol 100.9 mg/dL (40.0-60.0)
[2018-05-29] MEDS: HYDROmorphone PF Inj 2 MG/ML Vial IV.PUSH PRN ×6 (01:07→21:12)
[2018-05-29] MEDS: oxyCODONE/Acetaminophen 10/325 Tablet PO PRN ×4 (03:04→22:16)
[2018-05-29 04:36] LABS: Baso % (Auto) 1.2 % (0.0-2.0); Eos # (Auto) 0.2 th/mm3 (0.0-0.4); Eos % (Auto) 4.8 % (0.0-4.0); Hematocrit 36.3 % (39.0-51.0); Hemoglobin 11.9 gm/dL (13.0-17.0); Lymph # (Auto) 1.5 th/mm3 (1.0-4.8); Mean Corpuscular HGB Conc 32.8 % (32.0-36.0); Mean Corpuscular Hemoglobin 30.3 pg (27.0-34.0); Mean Corpuscular Volume 92.4 fL (80.0-100.0); Mean Platelet Volume 8.4 fL (7.0-11.0); Mono # (Auto) 0.4 th/mm3 (0.0-0.9); Mono % (Auto) 9.3 % (0.0-8.0); Neut # (Auto) 2.1 th/mm3 (1.8-7.7); Neut % (Auto) 49.7 % (16.0-70.0); Platelet Count 281 th/mm3 (150-450); Red Blood Count 3.93 mil/mm3 (4.50-5.90); Red Cell Distribution Width 14.3 % (11.6-17.2); White Blood Count 4.2 th/mm3 (4.0-11.0)
[2018-05-29 04:43] LABS: Anion Gap 5 meq/L (5-15); Blood Urea Nitrogen 5 mg/dL (7-18); Calcium 8.2 mg/dL (8.5-10.1); Carbon Dioxide 28.3 meq/L (21.0-32.0); Chloride 110 meq/L (98-107); Glomerular Filtration Rate Greater Than 89 mL/min (>89); Glucose,Random 96 mg/dL (74-106); Potassium 3.6 meq/L (3.5-5.1); Sodium 143 meq/L (136-145)
--- NOTE | 2018-05-29 10:21 | P.PNGI ---
Subjective Interval history: Pt resting in bed, transport in room preparing him to go down for MRI. Pt complaining of continued generalized abdominal pain with no improvements. States he is tolerating clear liquids and OK to go ahead with prep for colonoscopy and EGD tomorrow. Continued multiple episodes of diarrhea, no blood. <Patrice Guerrasey - Last Filed: 05/29/18 10:16> Physical Exam Vital signs: Vital Signs 05/28/18 12:00 05/28/18 14:00 05/28/18 20:00 Temperature 97.6 F 97.8 F 97.9 F Pulse Rate 67 85 76 Respiratory Rate 18 19 20 Blood Pressure 104/61 141/76 H 123/67 Pulse Oximetry 100 98 98 05/29/18 04:00 Temperature 98.2 F Pulse Rate 72 Respiratory Rate 18 Blood Pressure 116/53 L Pulse Oximetry 96 Intake & Output 05/28/18 05/29/18 05/29/18 18:59 06:59 18:59 Intake Total 1000 / 1000 1000 / 1000 Output Total 200 / 200 Balance 800 / 800 1000 / 1000 Intake: IV 1000 / 1000 1000 / 1000 LR 1000 mL Inj 1,000 ML @ 125 1000 / 1000 1000 / 1000 mls/hr IV.CONT .Q8H [facility] Rx#: [id number] Oral 0 / 0 Output: Urine 200 / 200 Other: Date of Last Bowel Movement 05/28/18 05/28/18 - Constitutional no acute distress - Routine HEENT Exam Head: Present: normocephalic, atraumatic - Routine Respiratory Exam Absent: accessory muscle use - Routine Cardiovascular Exam Present: RRR - Routine Abdominal Exam Present: soft, normoactive bowel sounds. Absent: tenderness - Routine Skin Exam Present: dry, warm - Routine Neurological Exam Present: alert, oriented X3 <Neeta Guerra - Last Filed: 05/29/18 10:16> Vital signs: Vital Signs 05/28/18 20:00 05/29/18 04:00 05/29/18 08:00 Temperature 97.9 F 98.2 F 97.6 F Pulse Rate 76 72 56 L Respiratory Rate 20 18 16 Blood Pressure 123/67 116/53 L 105/62 Pulse Oximetry 98 96 16 L 05/29/18 12:00 Temperature 98.1 F Pulse Rate 67 Respiratory Rate 16 Blood Pressure 118/58 L Pulse Oximetry 16 L Intake & Output 05/28/18 05/29/18 05/29/18 18:59 06:59 18:59 Intake Total 1000 / 1000 1000 / 1000 240 / 240 Output Total 200 / 200 Balance 800 / 800 1000 / 1000 240 / 240 Intake: IV 1000 / 1000 1000 / 1000 LR 1000 mL Inj 1,000 ML @ 125 1000 / 1000 1000 / 1000 mls/hr IV.CONT .Q8H [facility] Rx#: [id number] Oral 0 / 0 240 / 240 Output: Urine 200 / 200 Other: Date of Last Bowel Movement 05/28/18 05/28/18 05/28/18 <Ham Harman - Last Filed: 05/29/18 17:17> Results - Labs CBC & Chem 7: 05/29/18 03:39 05/29/18 03:39 Laboratory Results - last 24 hr 05/28/18 05/28/18 05/28/18 14:45 16:17 16:17 WBC RBC Hgb Hct MCV MCH MCHC RDW Plt Count MPV Neut % (Auto) Lymph % (Auto) Grand % (Auto) Eos % (Auto) Baso % (Auto) Neut # (Auto) Lymph # (Auto) Grand # (Auto) Eos # (Auto) Baso # (Auto) WBC Differential Differential Comment Sodium Potassium Chloride Carbon Dioxide Anion Gap BUN Creatinine Estimated GFR Random Glucose Calcium Triglycerides 192 H Cholesterol 206 H LDL Cholesterol, Calc 67 HDL Cholesterol 100.9 H Cholesterol/HDL Ratio 2.04 CA 19-9 Antigen 18.7 Stl C.difficile Tox PCR St C. diff Tox Epid 027 Urine Opiates Screen Neg Ur Barbiturates Screen Pos H Ur Amphetamines Screen Neg U Benzodiazepines Scrn Neg Urine Cocaine Screen Neg U Cannabinoids Screen Pos H 05/28/18 05/29/18 05/29/18 19:30 03:39 03:39 WBC 4.2 RBC 3.93 L Hgb 11.9 L Hct 36.3 L MCV 92.4 MCH 30.3 MCHC 32.8 RDW 14.3 Plt Count 281 MPV 8.4 Neut % (Auto) 49.7 Lymph % (Auto) 35.0 Grand % (Auto) 9.3 H Eos % (Auto) 4.8 H Baso % (Auto) 1.2 Neut # (Auto) 2.1 Lymph # (Auto) 1.5 Grand # (Auto) 0.4 Eos # (Auto) 0.2 Baso # (Auto) 0.0 WBC Differential . Differential Comment Auto diff final Sodium 143 Potassium 3.6 Chloride 110 H Carbon Dioxide 28.3 Anion Gap 5 BUN 5 L Creatinine 0.91 Estimated GFR Greater than 89 Random Glucose 96 Calcium 8.2 L Triglycerides Cholesterol LDL Cholesterol, Calc HDL Cholesterol Cholesterol/HDL Ratio CA 19-9 Antigen Stl C.difficile Tox PCR Negative St C. diff Tox Epid 027 Negative Urine Opiates Screen Ur Barbiturates Screen Ur Amphetamines Screen U Benzodiazepines Scrn Urine Cocaine Screen U Cannabinoids Screen Microbiology 05/28/18 19:30 Stool Enteric Pathogens (PCR) - Final No enteric pathogens detected by PCR (No Salmonella sp., Shigella sp., Campylobacter sp., Yersinia enterocolitica, Vibrio sp., Norovirus, or EHEC (Shiga Toxin 1 or Shiga Toxin 2) detected. <Neeta Guerra - Last Filed: 05/29/18 10:16> - Labs CBC & Chem 7: 05/29/18 03:39 05/29/18 03:39 Laboratory Results - last 24 hr 05/28/18 05/28/18 05/28/18 16:17 16:17 16:17 WBC RBC Hgb Hct MCV MCH MCHC RDW Plt Count MPV Neut % (Auto) Lymph % (Auto) Grand % (Auto) Eos % (Auto) Baso % (Auto) Neut # (Auto) Lymph # (Auto) Grand # (Auto) Eos # (Auto) Baso # (Auto) WBC Differential Differential Comment Sodium Potassium Chloride Carbon Dioxide Anion Gap BUN Creatinine Estimated GFR Random Glucose Calcium Triglycerides 192 H Cholesterol 206 H LDL Cholesterol, Calc 67 HDL Cholesterol 100.9 H Cholesterol/HDL Ratio 2.04 CA 19-9 Antigen 18.7 Stl C.difficile Tox PCR St C. diff Tox Epid 027 SRINIVASA Screen Neg 05/28/18 05/29/18 05/29/18 19:30 03:39 03:39 WBC 4.2 RBC 3.93 L Hgb 11.9 L Hct 36.3 L MCV 92.4 MCH 30.3 MCHC 32.8 RDW 14.3 Plt Count 281 MPV 8.4 Neut % (Auto) 49.7 Lymph % (Auto) 35.0 Grand % (Auto) 9.3 H Eos % (Auto) 4.8 H Baso % (Auto) 1.2 Neut # (Auto) 2.1 Lymph # (Auto) 1.5 Grand # (Auto) 0.4 Eos # (Auto) 0.2 Baso # (Auto) 0.0 WBC Differential . Differential Comment Auto diff final Sodium 143 Potassium 3.6 Chloride 110 H Carbon Dioxide 28.3 Anion Gap 5 BUN 5 L Creatinine 0.91 Estimated GFR Greater than 89 Random Glucose 96 Calcium 8.2 L Triglycerides Cholesterol LDL Cholesterol, Calc HDL Cholesterol Cholesterol/HDL Ratio CA 19-9 Antigen Stl C.difficile Tox PCR Negative St C. diff Tox Epid 027 Negative SRINIVASA Screen Microbiology 05/28/18 19:30 Stool Enteric Pathogens (PCR) - Final No enteric pathogens detected by PCR (No Salmonella sp., Shigella sp., Campylobacter sp., Yersinia enterocolitica, Vibrio sp., Norovirus, or EHEC (Shiga Toxin 1 or Shiga Toxin 2) detected. - Imaging Impressions Cholangiopancreatography MRI 05/29/18 00:00 CONCLUSION: 1. Unremarkable examination. The biliary system and gallbladder are within normal limits. <Ham Harman - Last Filed: 05/29/18 17:17> Assessment and Plan - Plan Assessment: - Pancreatitis of unclear etiology- lipase 2331 on admission Complaining of RUQ abdominal pain that came on suddenly yesterday afternoon, denies eating or doing anything prior to start of pain. Associated nausea and vomiting x 2, denies hematemesis and coffee ground emesis. Denies history of pancreatitis. Denies ETOH, new OTC or prescription medications. Of note, thinks his mother of pancreatic cancer and states she did not drink alcohol - Diarrhea- States chronic diarrhea secondary to Crohns but has been increasing in frequency over the past couple days, denies hematochezia History of Crohns disease S/P bowel resection x 2, at one point had colostomy which has since been reversed On Pentasa, Folic acid, calcium and iron supplements. States when he has a flare he goes to an urgent care for Prednisone, last flare a few months ago. Currently does not follow up with GI since moving from [place]. Last colonoscopy 1 year ago and states active Crohns flare at this time. (05/29) Pt complaining of generalized abdominal pain, states no improvement. Continued multiple episodes of diarrhea, C. Diff and enteric pathogens negative. States tolerating clear liquids and is OK with proceeding with prep today for GI procedures tomorrow. Plan: EGD and colonoscopy tomorrow Obtain consent Clear liquids today Mag Citrate prep NPO after MN Solumedrol MRCP SRINIVASA and IgG 4 Hyperlipidemia treatment per attending Further recommendations to follow based on clinical course and results of above Pt has been seen and examined by myself and Dr. Harman and this note is written on his behalf <Neeta Guerra - Last Filed: 05/29/18 10:16> - Plan Patient was seen and examined, agree with above note, plan for colonoscopy and EGD tomorrow Continue current management <Ham Harman - Last Filed: 05/29/18 17:17>
--- NOTE | 2018-05-29 12:58 | MR ---
EXAM DATE: 05/29/2018 10:57 AM EDT AGE/SEX: 28 years / Male INDICATIONS: Abdominal pain. CLINICAL DATA: This is the patient's initial encounter. Patient reports that signs and symptoms have been present for 3 days and indicates a pain score of 5/10. MEDICAL/SURGICAL HISTORY: None. Colon resection. [place] [facility] [place] 05/27/2018. . TECHNIQUE: Multiplanar, multisequence images of the abdomen were obtained without contrast including dedicated cholangiographic images. FINDINGS: Liver: The liver is homogeneous and normal in signal intensity with no focal defects. Intrahepatic Bile Ducts: There is no intrahepatic biliary ductal dilatation. Common Bile Duct: The common bile duct is normal in caliber No filling defects or obstructing lesio ns are identified. Gallbladder: The gallbladder is normal with no evidence for cholelithiasis, gallbladder wall thicken ing, or pericholecystic fluid. Pancreas: The pancreas appears normal in signal with no focal parenchymal abnormalities. The pancrea tic duct is normal in caliber with no filling defects, or obstructing lesions identified. CONCLUSION: 1. Unremarkable examination. The biliary system and gallbladder are within normal limits. Electronically signed by: Juvenal Reina MD 05/29/2018 12:56 PM EDT
[2018-05-29] MEDS: MethylPREDNISolone Sod Succinate Inj 40 MG/ML Vial IV.PUSH SCH ×2 (12:59→21:13)
--- NOTE | 2018-05-29 14:48 | P.PN ---
Subjective Interval history: Follow-up visit for acute pancreatitis, abdominal pain with history of Crohn's disease, tooth fracture. Patient is seen and examined sitting up in bed working on his laptop, appears to be in no acute distress. Patient has come back from [facility], tolerating fluid diet well. He denies any nausea, vomiting, chills, cough, shortness of breath, headache or dizziness. Complains of ongoing abdominal pain mostly on right side, positive flatus. Family at bedside , concerns for right tooth fracture, requesting antibiotics. Physical Exam Vital signs: Vital Signs 05/28/18 20:00 05/29/18 04:00 Temperature 36.6 C 36.8 C Pulse Rate 76 72 Respiratory Rate 20 18 Blood Pressure 123/67 116/53 L Pulse Oximetry 98 96 Intake & Output 05/28/18 05/29/18 05/29/18 18:59 06:59 18:59 Intake Total 1000 / 1000 1000 / 1000 240 / 240 Output Total 200 / 200 Balance 800 / 800 1000 / 1000 240 / 240 Intake: IV 1000 / 1000 1000 / 1000 LR 1000 mL Inj 1,000 ML @ 125 1000 / 1000 1000 / 1000 mls/hr IV.CONT .Q8H [facility] Rx#: [id number] Oral 0 / 0 240 / 240 Output: Urine 200 / 200 Other: Date of Last Bowel Movement 05/28/18 05/28/18 05/28/18 Narrative: GENERAL: This is a well-nourished, well-developed patient, in no apparent distress. HEENT: Mucous membranes pink, trachea midline, oropharynx with no exudate or erythema, no nasal drainage. Right upper molar dental carry with no surrounding gum erythema or drainage. CARDIOVASCULAR: Normal rate and regular rhythm without murmurs, gallops, or rubs. RESPIRATORY: Good respiratory efforts. Breath sounds equal and clear to auscultation bilaterally. GASTROINTESTINAL: Abdomen soft, non-distended. + Tenderness on right upper and lower quadrants, no rebound tenderness. MUSCULOSKELETAL: Extremities without cyanosis, or edema. NEURO: Alert & Oriented x4 to person, place, time, situation. Moves all ext x4 PSYCH: Appropriate mood and affect. Results - Labs CBC & Chem 7: 05/29/18 03:39 05/29/18 03:39 Laboratory Results - last 24 hr 05/28/18 05/28/18 05/28/18 14:45 16:17 16:17 WBC RBC Hgb Hct MCV MCH MCHC RDW Plt Count MPV Neut % (Auto) Lymph % (Auto) [place] % (Auto) Eos % (Auto) Baso % (Auto) Neut # (Auto) Lymph # (Auto) [place] # (Auto) Eos # (Auto) Baso # (Auto) WBC Differential Differential Comment Sodium Potassium Chloride Carbon Dioxide Anion Gap BUN Creatinine Estimated GFR Random Glucose Calcium Triglycerides 192 H Cholesterol 206 H LDL Cholesterol, Calc 67 HDL Cholesterol 100.9 H Cholesterol/HDL Ratio 2.04 CA 19-9 Antigen 18.7 Stl C.difficile Tox PCR St C. diff Tox Epid 027 Urine Opiates Screen Neg Ur Barbiturates Screen Pos H Ur Amphetamines Screen Neg U Benzodiazepines Scrn Neg Urine Cocaine Screen Neg U Cannabinoids Screen Pos H 05/28/18 05/29/18 05/29/18 19:30 03:39 03:39 WBC 4.2 RBC 3.93 L Hgb 11.9 L Hct 36.3 L MCV 92.4 MCH 30.3 MCHC 32.8 RDW 14.3 Plt Count 281 MPV 8.4 Neut % (Auto) 49.7 Lymph % (Auto) 35.0 [place] % (Auto) 9.3 H Eos % (Auto) 4.8 H Baso % (Auto) 1.2 Neut # (Auto) 2.1 Lymph # (Auto) 1.5 [place] # (Auto) 0.4 Eos # (Auto) 0.2 Baso # (Auto) 0.0 WBC Differential . Differential Comment Auto diff final Sodium 143 Potassium 3.6 Chloride 110 H Carbon Dioxide 28.3 Anion Gap 5 BUN 5 L Creatinine 0.91 Estimated GFR Greater than 89 Random Glucose 96 Calcium 8.2 L Triglycerides Cholesterol LDL Cholesterol, Calc HDL Cholesterol Cholesterol/HDL Ratio CA 19-9 Antigen Stl C.difficile Tox PCR Negative St C. diff Tox Epid 027 Negative Urine Opiates Screen Ur Barbiturates Screen Ur Amphetamines Screen U Benzodiazepines Scrn Urine Cocaine Screen U Cannabinoids Screen Microbiology 05/28/18 19:30 Stool Enteric Pathogens (PCR) - Final No enteric pathogens detected by PCR (No Salmonella sp., Shigella sp., Campylobacter sp., Yersinia enterocolitica, Vibrio sp., Norovirus, or EHEC (Shiga Toxin 1 or Shiga Toxin 2) detected. - Imaging Impressions Cholangiopancreatography MRI 05/29/18 00:00 CONCLUSION: 1. Unremarkable examination. The biliary system and gallbladder are within normal limits. Assessment and Plan - Plan Patient is a 28 year old male with PMHX Crohn's disease who came in to the hospital for severe abdominal pain. Acute Pancreatitis Underlying Crohn's disease -Lipase 2331 on presentation, trended down and normalized, now 202. -CT of the abdomen and pelvis is no contrast due to allergy. 1. Nonspecific bowel gas pattern. Evaluation is limited secondary to lack of intravenous and oral contrast. There are several loops of nondilated air- containing small bowel. This may represent a mild ileus. There is no definite free air. Postsurgical changes are noted in the pelvis with anastomotic zeenat. 2. Benign-appearing calcifications along lateral aspect of the right lobe of the liver. These may reside in the pleura. -GI consult Center, status post ERCP 05/29 which was negative. -Plans for colonoscopy/endoscopy tomorrow -Continue p.o. Percocet, as needed Dilaudid for breakthrough pain -Continue IV fluids until tolerating p.o. diet. Fracture tooth -Intact implantation, + dental carry. Discussed with patient no antibiotics required at this moment. -Follow up outpatient DVT Prop SCDs. Patient is ambulatory. Discussed Condition With: Patient, nurse and family at bedside. Discharge Planning: Pending GI workup in progress, ongoing abdominal pain.
[2018-05-29] MEDS ORDERED: Magnesium Citrate Liq 300 ML Bottle PO ONE ×2 (16:00→18:00)
[2018-05-30] MEDS: HYDROmorphone PF Inj 2 MG/ML Vial IV.PUSH PRN ×5 (01:14→21:09)
[2018-05-30] MEDS ORDERED: Metoprolol Tartrate 25 MG Tablet PO SCH (04:45)
[2018-05-30] MEDS ORDERED: Chlorhexidine Gluconate 2% 1 Pack (2 Cloths) TOPICAL SCH (04:45)
[2018-05-30] MEDS ORDERED: Sodium Chlor 0.9% Inj 500 ML IV.SIG SCH (05:00)
[2018-05-30] MEDS: MethylPREDNISolone Sod Succinate Inj 40 MG/ML Vial IV.PUSH SCH (05:31)
--- NOTE | 2018-05-30 09:49 | GIPROC ---
[facility] [address] [facility]. [facility], [address] EGD PROCEDURE REPORT EXAM DATE: 05/30/2018 PATIENT NAME: Bryson Humphreys MR #: [id number] BIRTHDATE: 1990 ATTENDING: Ham Harman MD ORDER #: [id number] MS SQL SERVER DEVELOPER: Ary Dunham STATUS: inpatient INDICATIONS: The patient is a 28 yr old male here for an EGD due to abdominal pain and History of Crohn disease PROCEDURE PERFORMED: EGD, diagnostic MEDICATIONS: None and Per Anesthesia. TOPICAL ANESTHETIC: none CONSENT: The patient understands the risks and benefits of the procedure and understands that these risks include, but are not limited to: sedation, allergic reaction, infection, perforation and/or bleeding. Alternative means of evaluation and treatment include, among others: physical exam, x-rays, and/or surgical intervention. The patient elects to proceed with this endoscopic procedure. medical equipment was checked for proper function. Hand hygiene and appropriate measures for infection prevention was taken. After the risks, benefits and alternatives of the procedure were thoroughly explained, Informed consent was verified, confirmed and timeout was successfully executed by the treatment team. The patient was anesthetized with topical anesthesia and the EC-[id number] (Pedi C) endoscope was introduced through the mouth and advanced to the second portion of the duodenum. Retroflexed views revealed Small hiatal hernia The gastroscope was then slowly withdrawn and removed. Food residual in the stomach otherwise normal. ADVERSE EVENTS: There were no complications. IMPRESSIONS: 1. Food residual in the stomach otherwise normal 2. Retroflexed views revealed Small hiatal hernia RECOMMENDATIONS: If pain persist patient might need gastric emptying study to rule out gastroparesis, this can be done as an outpatient PATIENT CONDITION: stable DISPOSITION: Inpatient REPEAT EXAM: NONE Ham Harman MD eSigned: Ham Harman MD 05/30/2018 9:49 AM cc:
--- NOTE | 2018-05-30 09:54 | GIPROC ---
[facility] [address] [facility]. [facility], [address] COLONOSCOPY PROCEDURE REPORT EXAM DATE: 05/30/2018 PATIENT NAME: Bryson Humphreys MR #: [id number] BIRTHDATE: 1990 ENDOSCOPIST: Ham Harman MD ORDER #: [id number] THEOLOGY TEACHER: Ary Dunham STATUS: inpatient INDICATIONS: The patient is a 28 yr old male here for a colonoscopy due to History of Crohn disease and chronic diarrhea PROCEDURE PERFORMED: Colonoscopy with biopsy MEDICATIONS: None and Per Anesthesia. PREP QUALITY: fair ESTIMATED BLOOD LOSS: None CONSENT: The patient understands the risks and benefits of the procedure and understands that these risks include, but are not limited to: sedation, allergic reaction, infection, perforation and/or bleeding. Alternative means of evaluation and treatment include, among others: physical exam, x-rays, and/or surgical intervention. The patient elects to proceed with this endoscopic procedure. medical equipment was checked for proper function. Hand hygiene and appropriate measures for infection prevention was taken. After the risks, benefits and alternatives of the procedure were thoroughly explained, Informed consent was verified, confirmed and timeout was successfully executed by the treatment team. A digital exam revealed no abnormalities of the rectum The Pentax EC-[id number] endoscope was introduced through the anus and advanced to the ileum. The instrument was then slowly withdrawn as the colon was fully examined. COLON FINDINGS: Patient have significant resection of his colon only 20 cm to 25 cm left, but exam was deep inside the small bowel about 40 cm of the ileum was examined there was normal exams no ulcerations no Crohn was seen Random biopsy from the rectum was performed. Retroflexed views revealed no abnormalities The scope was then completely withdrawn from the patient and the procedure terminated. ADVERSE EVENTS: There were no complications. IMPRESSIONS: 1. Patient have significant resection of his colon only 20 cm to 25 cm left, but exam was deep inside the small bowel about 40 cm of the ileum was examined there was normal exams no ulcerations no Crohn was seen Random biopsy from the rectum was performed 2. Retroflexed views revealed no abnormalities 3. Revealed no abnormalities of the rectum RECOMMENDATIONS: 1. Await biopsy results. Biopsy results will not be ready for 7-10 days. If you don't hear from us in two weeks, call our office for results. 2. Benefiber 2 tsp daily 3. Continue current medication Establish with a die maker bench stamping for management of Crohn disease and trying to avoid prednisone as much as possible Okay to discharge home from [facility] if tolerated diet RECALL: Return 2 years Colonoscopy Ham Harman MD eSigned: Ham Harman MD 05/30/2018 9:54 AM cc:
--- NOTE | 2018-05-30 09:59 | P.PNGI ---
Subjective Interval history: Patient is doing okay, no complain, less abdominal discomfort, no sign of active GI bleed Physical Exam Vital signs: Vital Signs 05/29/18 12:00 05/29/18 16:16 05/29/18 20:51 Temperature 98.1 F 98 F 97.7 F Pulse Rate 67 68 65 Respiratory Rate 16 16 17 Blood Pressure 118/58 L 133/77 112/59 L Pulse Oximetry 16 L 68 L 98 05/29/18 23:54 05/30/18 02:24 05/30/18 03:00 Temperature 97.8 F 97.9 F Pulse Rate 62 61 Respiratory Rate 17 16 17 Blood Pressure 118/68 117/75 Pulse Oximetry 98 96 05/30/18 07:30 Temperature 97.6 F Pulse Rate 64 Respiratory Rate 18 Blood Pressure 121/59 L Pulse Oximetry 98 Intake & Output 05/29/18 05/30/18 05/30/18 18:59 06:59 18:59 Intake Total 1240 / 1240 3057 / 3057 Balance 1240 / 1240 3057 / 3057 Weight 63 kg Intake: IV 1000 / 1000 2937 / 2937 LR 1000 mL Inj 1,000 ML @ 125 1000 / 1000 2937 / 2937 mls/hr IV.CONT .Q8H [facility] Rx#: [id number] Oral 240 / 240 120 / 120 Other: # Voids 2 Date of Last Bowel Movement 05/28/18 05/29/18 # Bowel Movements 0 - Constitutional no acute distress - Routine HEENT Exam Head: Present: normocephalic, atraumatic Eye: Present: EOMI, PERRL - Routine Neck Exam Present: supple, full ROM - Routine Respiratory Exam Comments: Normal exam - Routine Cardiovascular Exam Present: RRR, S1, S2 - Routine Abdominal Exam Present: soft, normoactive bowel sounds Comments: Multiple surgical scars - Routine Extremities Exam Present: full ROM Results - Labs CBC & Chem 7: 05/29/18 03:39 05/29/18 03:39 Laboratory Results - last 24 hr 05/28/18 16:17 SRINIVASA Screen Neg Microbiology 05/28/18 19:30 Stool Enteric Pathogens (PCR) - Final No enteric pathogens detected by PCR (No Salmonella sp., Shigella sp., Campylobacter sp., Yersinia enterocolitica, Vibrio sp., Norovirus, or EHEC (Shiga Toxin 1 or Shiga Toxin 2) detected. - Imaging Impressions Cholangiopancreatography MRI 05/29/18 00:00 CONCLUSION: 1. Unremarkable examination. The biliary system and gallbladder are within normal limits. Assessment and Plan - Plan Patient was seen and examined, patient has pancreatitis resolving, Crohn disease with previous multiple surgeries including colectomy, had upper endoscopy and colonoscopy today Upper endoscopy showed small hiatal hernia, food residual in the body of the stomach Colonoscopy showed only 20 cm left of the colon because of resection, normal mucosa of the ileum and the colon, no sign of active Crohn's disease Recommendations If patient pain continue he may need gastric emptying study Diet as tolerated Okay to discharge home from [facility] Follow-up with a sisal operator for Crohn disease management as an outpatient Continue current medication
--- NOTE | 2018-05-30 11:26 | P.PN ---
Subjective Interval history: Follow-up visit for acute pancreatitis, abdominal pain, history of Crohn's disease. Spoke with nurse reports patient has been asking for pain medication due to ongoing abdominal pain. He has returned from EGD and colonoscopy a little bit ago, requesting IV Benadryl. Patient is seen and examined sitting up in bed eating a popsicle and on his laptop computer. Continues to complain of abdominal pain, states that the popsicle is helping with this. He is also requesting that his Percocet be switched back to every 4 hours. No nausea or vomiting reported. Denies fevers chills shortness of breath or cough. Physical Exam Vital signs: Vital Signs 05/29/18 12:00 05/29/18 16:16 05/29/18 20:51 Temperature 36.7 C 36.6 C 36.5 C Pulse Rate 67 68 65 Respiratory Rate 16 16 17 Blood Pressure 118/58 L 133/77 112/59 L Pulse Oximetry 16 L 68 L 98 05/29/18 23:54 05/30/18 02:24 05/30/18 03:00 Temperature 36.6 C 36.6 C Pulse Rate 62 61 Respiratory Rate 17 16 17 Blood Pressure 118/68 117/75 Pulse Oximetry 98 96 05/30/18 07:30 05/30/18 10:02 Temperature 36.4 C 36.4 C Pulse Rate 64 58 L Respiratory Rate 18 16 Blood Pressure 121/59 L 109/60 Pulse Oximetry 98 100 Intake & Output 05/29/18 05/30/18 05/30/18 18:59 06:59 18:59 Intake Total 1240 / 1240 3057 / 3057 350 / 350 Balance 1240 / 1240 3057 / 3057 350 / 350 Weight 63 kg Intake: IV 1000 / 1000 2937 / 2937 LR 1000 mL Inj 1,000 ML @ 125 1000 / 1000 2937 / 2937 mls/hr IV.CONT .Q8H [facility] Rx#: [id number] Oral 240 / 240 120 / 120 Anesthesia Amount 350 / 350 Other: # Voids 2 1 Date of Last Bowel Movement 05/28/18 05/29/18 # Bowel Movements 0 Narrative: GENERAL: This is a well-nourished, well-developed patient, in no apparent distress. HEENT: Mucous membranes pink, trachea midline, no nasal drainage. CARDIOVASCULAR: Normal rate and regular rhythm without murmurs, gallops, or rubs. RESPIRATORY: Good respiratory efforts. Breath sounds equal and clear to auscultation bilaterally. GASTROINTESTINAL: Abdomen soft, non-distended. + Tenderness on mid and right upper quadrants, no rebound tenderness. MUSCULOSKELETAL: Extremities without cyanosis, or edema. NEURO: Alert & Oriented x4 to person, place, time, situation. Moves all ext x4 PSYCH: Appropriate mood and affect. Results - Labs CBC & Chem 7: 05/29/18 03:39 05/29/18 03:39 Laboratory Results - last 24 hr 05/28/18 16:17 SRINIVASA Screen Neg Microbiology 05/28/18 19:30 Stool Enteric Pathogens (PCR) - Final No enteric pathogens detected by PCR (No Salmonella sp., Shigella sp., Campylobacter sp., Yersinia enterocolitica, Vibrio sp., Norovirus, or EHEC (Shiga Toxin 1 or Shiga Toxin 2) detected. - Imaging Impressions Cholangiopancreatography MRI 05/29/18 00:00 CONCLUSION: 1. Unremarkable examination. The biliary system and gallbladder are within normal limits. Assessment and Plan - Plan Patient is a 28 year old male with PMHX Crohn's disease who came in to the hospital for severe abdominal pain. Acute Pancreatitis Underlying Crohn's disease -Lipase 2331 on presentation, trended down and normalized, now 202. -CT of the abdomen and pelvis is no contrast due to allergy. 1. Nonspecific bowel gas pattern. Evaluation is limited secondary to lack of intravenous and oral contrast. There are several loops of nondilated air- containing small bowel. This may represent a mild ileus. There is no definite free air. Postsurgical changes are noted in the pelvis with anastomotic zeenat. 2. Benign-appearing calcifications along lateral aspect of the right lobe of the liver. These may reside in the pleura. -GI consult Center, status post ERCP 05/29 which was negative. -s/p colonoscopy/endoscopy this morning, upper endoscopy showed small hiatal hernia with residual food in the body of the stomach. Colonoscopy showed 20 cm of colon with normal mucosa of ileum and colon, no active Crohn's disease. -Recommendations for gastric emptying study if pain continues. Discussed with patient and nurse, gastric emptying study to be completed possibly tomorrow. -Continue p.o. Percocet, decrease Dilaudid frequency to every 6 hours, p.o. Benadryl for itching -Oral diet as tolerated, n.p.o. after midnight for gastric emptying study tomorrow Fracture tooth -Intact implantation, + dental carry. -Follow up outpatient DVT Prop SCDs. Patient is ambulatory. Discussed Condition With: Discussed with patient, nurse and . Discharge Planning: Pending GI workup in progress, ongoing abdominal pain.
[2018-05-30] MEDS ORDERED: fentaNYL Citrate Inj 100 MCG/2 ML Ampul ONE (11:59)
[2018-05-30] MEDS: oxyCODONE/Acetaminophen 10/325 Tablet PO PRN ×3 (12:00→23:59)
[2018-05-30] MEDS ORDERED: Lidocaine PF 1% Inj 5 ML Syringe INFILTRATN ONE (12:00)
[2018-05-31] MEDS: HYDROmorphone PF Inj 2 MG/ML Vial IV.PUSH PRN (03:28)
[2018-05-31] MEDS: oxyCODONE/Acetaminophen 10/325 Tablet PO PRN ×2 (06:11→13:28)
--- NOTE | 2018-05-31 09:01 | P.PN ---
Subjective Interval history: Follow-up visit for acute pancreatitis, abdominal pain, history of Crohn's disease. Patient is seen and examined sitting up in bed watching a movie on his laptop, does not appear to be in any acute distress or discomfort. When asked how his stomach is feeling he reports is feeling "like S". He denies any nausea, vomiting, fevers, chills, shortness of breath, headache or dizziness. Ongoing abdominal pain and tenderness reported, also states that he had liquid bowel movements yesterday. He states that his bowel movements are normally the consistency of mashed potatoes. Physical Exam Vital signs: Vital Signs 05/30/18 10:02 05/30/18 11:00 05/30/18 16:00 Temperature 36.4 C 36.6 C 36.7 C Pulse Rate 58 L 70 84 Respiratory Rate 16 17 18 Blood Pressure 109/60 126/75 123/69 Pulse Oximetry 100 98 98 05/30/18 20:05 05/30/18 21:08 05/30/18 23:35 Temperature 37.1 C 36.3 C L Pulse Rate 68 75 Respiratory Rate 18 18 18 Blood Pressure 105/57 L 116/63 Pulse Oximetry 99 99 05/30/18 23:53 05/31/18 03:27 05/31/18 03:47 Temperature 36.7 C Pulse Rate 76 Respiratory Rate 16 18 18 Blood Pressure 120/65 Pulse Oximetry 98 Intake & Output 05/30/18 05/31/18 05/31/18 18:59 06:59 18:59 Intake Total 830 / 830 480 / 480 Balance 830 / 830 480 / 480 Weight 63 kg Intake: Oral 480 / 480 480 / 480 Anesthesia Amount 350 / 350 Other: # Voids 1 3 Date of Last Bowel Movement 05/29/18 # Bowel Movements 0 Narrative: GENERAL: This is a well-nourished, well-developed patient, in no apparent distress. HEENT: Mucous membranes pink, trachea midline, no nasal drainage. CARDIOVASCULAR: Normal rate and regular rhythm without murmurs, gallops, or rubs. RESPIRATORY: Good respiratory efforts. Breath sounds equal and clear to auscultation bilaterally. GASTROINTESTINAL: Abdomen soft, non-distended. + Diffuse tenderness. MUSCULOSKELETAL: Extremities without cyanosis, or edema. NEURO: Alert & Oriented x4 to person, place, time, situation. Moves all ext x4 PSYCH: Appropriate mood and affect. Results - Labs CBC & Chem 7: 05/29/18 03:39 05/29/18 03:39 Assessment and Plan - Plan Patient is a 28 year old male with PMHX Crohn's disease who came in to the hospital for severe abdominal pain. Acute Pancreatitis Underlying Crohn's disease -Lipase 2331-->202-->838, increased once again. Discussed with RN, IVF and recheck in am. No N/V or complaints of pain after patient made aware his pain medications have been D/C -CT of the abdomen and pelvis is no contrast due to allergy. 1. Nonspecific bowel gas pattern. Evaluation is limited secondary to lack of intravenous and oral contrast. There are several loops of nondilated air- containing small bowel. This may represent a mild ileus. There is no definite free air. Postsurgical changes are noted in the pelvis with anastomotic zeenat. 2. Benign-appearing calcifications along lateral aspect of the right lobe of the liver. These may reside in the pleura. -GI consult Center, status post ERCP 05/29 which was negative. -s/p colonoscopy/endoscopy this morning, upper endoscopy showed small hiatal hernia with residual food in the body of the stomach. Colonoscopy showed 20 cm of colon with normal mucosa of ileum and colon, no active Crohn's disease. Discontinued Solu-Medrol. -Gastric emptying study showed delayed gastric emptying with improvement following Reglan. -Discussed with GI, will discontinue opiate medications which could be contributing to delayed gastric emptying. -Started on p.o. erythromycin, advance diet -Test for C. difficile due to complaints of diarrhea. Possibly discharge tomorrow if tolerating diet Fracture tooth -Intact implantation, + dental carry. -Follow up outpatient DVT Prop SCDs. Patient is ambulatory. Discussed Condition With: Patient and RN. Discharge Planning: If tolerating diet most likely discharge tomorrow, can follow-up with GI as outpatient.
--- NOTE | 2018-05-31 12:45 | NM ---
EXAM DATE: 05/31/2018 12:39 PM EDT AGE/SEX: 28 years / Male INDICATIONS: Abdominal pain and nausea. CLINICAL DATA: This is the patient's initial encounter. Patient reports that signs and symptoms have been present for 1 week and indicates a pain score of 3/10. MEDICAL/SURGICAL HISTORY: Crohn's disease. Colostomy. Colon resection. COMPARISON: No prior exams available for comparison. No external comparison. DOSE: 1.1 mCi Tc99m Sulfur Colloid Labeled Whole Egg PO MEDICATION: 0.5 mg Reglan IV at 90 min. minutes. IMAGING TIME: 2 hr TECHNIQUE: Following the oral ingestion of radiotracer-labeled meal, dynamic sequential images in the ISABELLA projection were acquired with simultaneous computer acquisition. The data set was decay-correcte d. FINDINGS: Lag Phase: There is 5 minutes before onset of gastric emptying. Emptying: There is some poor emptying of the stomach with only approximately 35-40% of tracer activit y out of the stomach by 90 minutes.. (Normal for this lab is 45 - 90 minutes) Intervention: There is prompt emptying of the stomach after IV Reglan was administered at 90 minutes . CONCLUSION: 1. The above findings suggest delayed gastric emptying. 2. There is prompt emptying of the stomach following IV Reglan. Electronically signed by: Gilson Garner MD 05/31/2018 12:44 PM EDT
--- NOTE | 2018-05-31 13:35 | P.PNGI ---
Subjective Interval history: Pt returned back for GES. States continued diffuse abdominal pain. Palpated pts abdomen while talking about the TV show he is watching and pt did not complain of pain or grimace. Denies nausea, vomiting. Bowel movements he states are like mashed potatoes, states this is his normal. <BebetokamiNeeta dutta - Last Filed: 05/31/18 14:44> Interval history: Patient was seen and examined, was laying in bed, he said he wanted on the Reglan, I explained to him about the side effect of it and that he need to 4 times daily small meals and not to take the Reglan for a long time and he is interested the side effect and agitation about, might consider erythromycin instead for long-term if needed <Ham Harman - Last Filed: 05/31/18 18:14> Physical Exam Vital signs: Vital Signs 05/30/18 16:00 05/30/18 20:05 05/30/18 21:08 Temperature 98.0 F 98.7 F Pulse Rate 84 68 Respiratory Rate 18 18 18 Blood Pressure 123/69 105/57 L Pulse Oximetry 98 99 05/30/18 23:35 05/30/18 23:53 05/31/18 03:27 Temperature 97.3 F L Pulse Rate 75 Respiratory Rate 18 16 18 Blood Pressure 116/63 Pulse Oximetry 99 05/31/18 03:47 05/31/18 08:00 Temperature 98.1 F 97.6 F Pulse Rate 76 53 L Respiratory Rate 18 18 Blood Pressure 120/65 122/65 Pulse Oximetry 98 98 Intake & Output 05/30/18 05/31/18 05/31/18 18:59 06:59 18:59 Intake Total 830 / 830 480 / 480 1000 / 1000 Balance 830 / 830 480 / 480 1000 / 1000 Weight 63 kg Intake: IV 1000 / 1000 LR 1000 mL Inj 1,000 ML @ 30 1000 / 1000 mls/hr IV.SIG .Q24H [facility] Rx#: [id number] Oral 480 / 480 480 / 480 Anesthesia Amount 350 / 350 Other: # Voids 1 3 Date of Last Bowel Movement 05/29/18 05/30/18 # Bowel Movements 0 - Constitutional no acute distress - Routine HEENT Exam Head: Present: normocephalic, atraumatic - Routine Respiratory Exam Absent: accessory muscle use - Routine Cardiovascular Exam Present: RRR - Routine Abdominal Exam Present: soft, normoactive bowel sounds. Absent: tenderness, distended - Routine Skin Exam Present: dry, warm - Routine Neurological Exam Present: alert, oriented X3 <Neeta Guerra - Last Filed: 05/31/18 14:44> Vital signs: Vital Signs 05/30/18 20:05 05/30/18 21:08 05/30/18 23:35 Temperature 98.7 F 97.3 F L Pulse Rate 68 75 Respiratory Rate 18 18 18 Blood Pressure 105/57 L 116/63 Pulse Oximetry 99 99 05/30/18 23:53 05/31/18 03:27 05/31/18 03:47 Temperature 98.1 F Pulse Rate 76 Respiratory Rate 16 18 18 Blood Pressure 120/65 Pulse Oximetry 98 05/31/18 08:00 05/31/18 12:00 Temperature 97.6 F 99.4 F Pulse Rate 53 L 79 Respiratory Rate 18 18 Blood Pressure 122/65 133/85 Pulse Oximetry 98 95 Intake & Output 05/30/18 05/31/18 05/31/18 18:59 06:59 18:59 Intake Total 830 / 830 480 / 480 1000 / 1000 Balance 830 / 830 480 / 480 1000 / 1000 Weight 63 kg Intake: IV 1000 / 1000 LR 1000 mL Inj 1,000 ML @ 30 1000 / 1000 mls/hr IV.SIG .Q24H [facility] Rx#: [id number] Oral 480 / 480 480 / 480 Anesthesia Amount 350 / 350 Other: # Voids 1 3 Date of Last Bowel Movement 05/29/18 05/30/18 # Bowel Movements 0 <Ham Harman - Last Filed: 05/31/18 18:14> Results - Labs CBC & Chem 7: 05/29/18 03:39 05/29/18 03:39 Laboratory Results - last 24 hr 05/28/18 16:17 IgG Total 757 IgG1 425 IgG2 296 IgG3 28 IgG4 22.9 - Imaging Impressions Gastric Emptying Nuclear Medicine 05/31/18 00:00 CONCLUSION: 1. The above findings suggest delayed gastric emptying. 2. There is prompt emptying of the stomach following IV Reglan. <Neeta Guerra - Last Filed: 05/31/18 14:44> - Labs CBC & Chem 7: 05/29/18 03:39 05/29/18 03:39 Laboratory Results - last 24 hr 05/28/18 05/31/18 16:17 13:08 Lipase 838 H IgG Total 757 IgG1 425 IgG2 296 IgG3 28 IgG4 22.9 - Imaging Impressions Gastric Emptying Nuclear Medicine 05/31/18 00:00 CONCLUSION: 1. The above findings suggest delayed gastric emptying. 2. There is prompt emptying of the stomach following IV Reglan. <Ham Harman - Last Filed: 05/31/18 18:14> Assessment and Plan - Plan Assessment: Assessment: - Pancreatitis of unclear etiology- lipase 2331 on admission Complaining of RUQ abdominal pain that came on suddenly yesterday afternoon, denies eating or doing anything prior to start of pain. Associated nausea and vomiting x 2, denies hematemesis and coffee ground emesis. Denies history of pancreatitis. Denies ETOH, new OTC or prescription medications. Of note, thinks his mother of pancreatic cancer and states she did not drink alcohol - Diarrhea- States chronic diarrhea secondary to Crohns but has been increasing in frequency over the past couple days, denies hematochezia History of Crohns disease S/P bowel resection x 2, at one point had colostomy which has since been reversed On Pentasa, Folic acid, calcium and iron supplements. States when he has a flare he goes to an urgent care for Prednisone, last flare a few months ago. Currently does not follow up with GI since moving from [place]. Last colonoscopy 1 year ago and states active Crohns flare at this time. (05/29) Pt complaining of generalized abdominal pain, states no improvement. Continued multiple episodes of diarrhea, C. Diff and enteric pathogens negative. States tolerating clear liquids and is OK with proceeding with prep today for GI procedures tomorrow. (05/31) S/P EGD and colonoscopy yesterday EGD --> Food residue in the stomach, otherwise normal. Small hiatal hernia Colonoscopy --> Patient have significant resection of his colon only 20 cm to 25 cm left, but exam was deep inside the small bowel about 40 cm of the ileum was examined there was normal exams no ulcerations no Crohn was seen Random biopsy from the rectum was performed. Pt still complaining of generalized abdominal pain, abdomen palpated while discussing the show he was watching and pt did not complain of any pain and did not grimace. Pt denies nausea, vomiting. Pts stools are at baseline. Solumedrol discontinued, no acute flare, should continue Pentasa outpatient. Lipase now back to normal. Markers negative for autoimmune pancreatitis. GES noted from today with delayed emptying responsive to Reglan, will add Reglan to current medication regimen. Pain medication should be minimized Plan: Colon biopsy pending Trial of Erythromycin Continue Pentasa OK to DC from a GI standpoint Have pt follow up with GI after DC Pt has been seen and examined by myself and Dr. Harman and this note is written on his behalf <Neeta Guerra - Last Filed: 05/31/18 14:44>
[2018-05-31] MEDS ORDERED: oxyCODONE/Acetaminophen 10/325 Tablet PO ONE (20:07)
[2018-05-31] MEDS: Mesalamine 250 MG Capsule ER PO SCH (20:43)
[2018-05-31] MEDS ORDERED: Metoclopramide 10 MG Tablet PO SCH (21:00)
[2018-06-01 01:51] VITALS: PULSE 63
--- NOTE | 2018-06-01 08:18 | P.DS ---
Date of admission: 05/27/18 20:37 Primary care physician: UNKNOWN Attending physician on discharge: Michael Rubio Anticipated date of discharge: 06/01/18 Brief History from admission: Patient is a 28 year old male with PMHX Crohn's disease who came in to the hospital for severe abdominal pain. Patient states that he does not really have a flare up of Crohn's , noting it is just once every 2 years or so however states he was he was also hospitalized about 3 weeks ago for Crohn's flare up. He also complained that he broke his tooth while eating and stopped his fork in it on the right upper molar portion. But states that he has severe abdominal pain right now and is asking for pain medication. States that he got Dilaudid before and other hospital and that helped him to calm down his severe pain. Patient denies any alcohol use, drug use except for marijuana use. He denies any other medical history. States he had 2 colon resection with colostomy placement and reversal. States abdominal pain is diffuse, rated 10/10, radiating all the way to his back, aggravated by movement, does not know what to relieve it. States he is very anxious because he never had this kind of pain. Positive nausea, no vomiting, positive diarrhea, liquid, no blood. Otherwise, denies SOB/ dyspnea. Denies chest pain, palpitations, headaches, dizziness. Denies fevers, chills. Denies dysuria. Tachycardia 125, 121/85, Lipase 2331. CT scan of the abdomen and pelvis 1. Nonspecific bowel gas pattern. Evaluation is limited secondary to lack of intravenous and oral contrast. There are several loops of nondilated air-containing small bowel. This may represent a mild ileus. There is no definite free air. Postsurgical changes are noted in the pelvis with anastomotic zeenat. 2. Benign-appearing calcifications along lateral aspect of the right lobe of the liver. These may reside in the pleura. DS: Medications - Discharge Medications Prescriptions: erythromycin ethylsuccinate [E.E.S. 400] 400 mg PO Q8HR #90 tab DS: Summary Hospital Course: Patient is a 28 year old male with PMHX Crohn's disease who came in to the hospital for severe abdominal pain. Lab work revealed lipase of 2331 treated with IV hydration. CT of abdomen was done without contrast which showed nonspecific bowel pattern possibly representing mild ileus, surgical changes noted in the pelvis from prior anastomotic zeenat, benign-appearing calcifications along the lateral aspect of the right lower lobe of the lung possibly residing in the pleura. GI was consulted to evaluate patient and patient underwent ERCP on 05/29 which was negative. He also had endoscopy which revealed small hiatal hernia with residual fluid in the stomach. Colonoscopy revealed 20 cm of colon with normal mucosa of the ileum and no active Crohn's disease. Patient also underwent gastric emptying study which showed delayed gastric emptying with improvement following Reglan. GI recommended continuing mesalamine and initiated erythromycin. Patient's lactic acid improved in the day as discharge was 333. GI recommended ongoing follow-up as outpatient for his chronic Crohn's disease. He was discharged home with instructions to follow -up with his PCP as well as GI. Seen this morning asleep in bed, he awakens and I ask if he is ready to go home , states "I guess". States he is hurting, no reports of N/V/D. Spoke with warehouse shift supervisor nurse who reports patient slept throughout the night. She even had to wake patient up to fix his IV. He did receive one time dose of pain medication. Patient did not voice any other concerns at this moment of my visit this morning with him. Discussed with patient the importance of following up with PCP as well as GI. - Time Spent with Patient Total time spent providing and/or coordinating discharge services: - Quality: VTE Deep Vein Thrombosis/Pulmonary Embolism Present on Admission: No Exam Vital signs: Vital Signs 05/31/18 12:00 05/31/18 16:00 05/31/18 20:00 Temperature 37.4 C 36.6 C 36.9 C Pulse Rate 79 54 L 70 Respiratory Rate 18 18 20 Blood Pressure 133/85 147/63 H 116/63 Pulse Oximetry 95 99 98 06/01/18 00:00 Temperature 36.6 C Pulse Rate 63 Respiratory Rate 16 Blood Pressure 116/69 Pulse Oximetry 99 Intake & Output 05/31/18 06/01/18 06/01/18 18:59 06:59 18:59 Intake Total 1000 / 1000 2600 / 2600 Balance 1000 / 1000 2600 / 2600 Intake: IV 1000 / 1000 1000 / 1000 LR 1000 mL Inj 1,000 ML @ 125 1000 / 1000 mls/hr IV.CONT .Q8H [facility] Rx#: [id number] LR 1000 mL Inj 1,000 ML @ 30 1000 / 1000 mls/hr IV.SIG .Q24H [facility] Rx#: [id number] Oral 1600 / 1600 Other: # Voids 3 4 Date of Last Bowel Movement 05/30/18 05/30/18 Narrative: GENERAL: This is a well-nourished, well-developed patient, in no apparent distress. HEENT: Mucous membranes pink, trachea midline. CARDIOVASCULAR: Normal rate and regular rhythm without murmurs, gallops, or rubs. RESPIRATORY: Good respiratory efforts. Breath sounds equal and clear to auscultation bilaterally. GASTROINTESTINAL: Abdomen soft, non-distended. + bowel sounds, no tenderness when palpation elicited with my stethendoscope. MUSCULOSKELETAL: Extremities without cyanosis, or edema. NEURO: Alert & Oriented x4 to person, place, time, situation. Moves all ext x4 PSYCH: Appropriate mood and affect. Results Procedures completed during hospitalization: 05/30/18 upper endoscopy and colonoscopy Completed studies during hospitalization: Pending at discharge 05/30/18 13:40 Surgical [PTH] Routine Labs on day of discharge: Labs from last 24 hours 06/01/18 05/31/18 05/28/18 04:52 13:08 16:17 Lipase 333 838 H IgG Total 757 IgG1 425 IgG2 296 IgG3 28 IgG4 22.9 - Impressions ITS Impressions Abdomen/Pelvis CT 05/27/18 15:25 CONCLUSION: 1. Nonspecific bowel gas pattern. Evaluation is limited secondary to lack of intravenous and oral contrast. There are several loops of nondilated air- containing small bowel. This may represent a mild ileus. There is no definite free air. Postsurgical changes are noted in the pelvis with anastomotic zeenat. 2. Benign-appearing calcifications along lateral aspect of the right lobe of the liver. These may reside in the pleura. Cholangiopancreatography MRI 05/29/18 00:00 CONCLUSION: 1. Unremarkable examination. The biliary system and gallbladder are within normal limits. Gastric Emptying Nuclear Medicine 05/31/18 00:00 CONCLUSION: 1. The above findings suggest delayed gastric emptying. 2. There is prompt emptying of the stomach following IV Reglan. Discharge Plan - Discharge Disposition Patient Disposition: Discharge Home - Discharge Condition Condition: Stable - Discharge Order Discharge Orders: Discharge Order (Routine); Ordered 06/01/18 Ordered By: Kathrine Stone - Physicians Team Primary Care Provider: UNKNOWN, Attending Provider: Michael Rubio Other Providers: Cornell Hays MD
[2018-06-01 09:27] VITALS: BP 103/69; RESP 17; TEMP 98.4; O2SAT 98
[2018-06-01] MEDS: Mesalamine 250 MG Capsule ER PO SCH (09:39)
== END 2018-06-01 11:46 | disposition home or self-care (01) ==
LOC: NEPE 14:59 → INTOOBSV 19:29 → NEDA 19:29 → N06 20:02
PROVIDERS: ADMIT Family Medicine; ATTEND Family Medicine
PROC: COLONOS (2018-05-30 09:20)
PROC: PANENDO (2018-05-30 09:20)